=== PATIENT | female | born 1950 | race Caucasian/White ===

== ENCOUNTER → 2017-01-31 | Outpatient (CLI) | payer MEDICARE, MEDICAID ==
[~2017-01-31] MED LIST: ALLERGY10 MG PO; ASPIRIN CHEWABL81 MG PO; ATENOLOL50 MG PO; CIPROFLOXACIN500 MG PO; DAYPRO600 M1 PO; HYDR1000 IM; HYDR25T PO; HYDROCODONE BIT1 T11 PO; NORCO 10-325 T1 EACH PO; POTASSIUM20 MEQ PO; ROBITUSSIN AC 110 ML PO; ROPINIROLE HY0.25 MG PO; SLOW MAG 110 MG64 MG PO; VICODIN ES 7501 TAB PO; ZANTAC150 MG PO; ZITHROMAX Z PA250 MG PO; ZOLOFT100 MG PO
== END | disposition home or self-care (01) ==
LOC: LAB 14:56
DX: E55.9 Vitamin D deficiency, unspecified (principal)

== ENCOUNTER → 2017-04-15 | Outpatient (CLI) | payer MEDICARE, MEDICAID | END | disposition home or self-care (01) | LOC: LAB 15:04 | DX: E55.9 Vitamin D deficiency, unspecified (principal) ==

== ENCOUNTER → 2017-07-25 | Outpatient (CLI) | payer MEDICARE, MEDICAID | END | disposition home or self-care (01) | LOC: ORTHO 03:19 | DX: M47.9 Spondylosis, unspecified (principal); G95.89 Other specified diseases of spinal cord ==

== ENCOUNTER → 2017-08-14 | Outpatient (CLI) | payer MEDICARE, MEDICAID | END | disposition home or self-care (01) | LOC: MAMMO 06:48 | DX: Z12.31 Encounter for screening mammogram for malignant neoplasm of breast (principal) ==

== ENCOUNTER → 2018-01-16 | Outpatient (CLI) | payer MEDICARE, MEDICAID ==
[2018-01-16 12:14] LABS: BASO % 0.7 % (0.0-1.0); EOS # 0.1 10*3/uL (0.0-0.4); EOS % 2.8 % (1.0-4.0); HEMATOCRIT 41.2 % (37.0-47.0); HEMOGLOBIN 13.2 g/dl (12.0-16.0); MEAN CELL VOLUME 92.6 fl (81.0-99.0); MEAN CORPUSCULAR HGB 29.7 pg (27.0-31.0); MEAN PLATELET VOLUME 10.1 fl (9.6-12.3); MONO # 0.3 10*3/uL (0.1-1.0); MONO % 7.1 % (3.0-9.0); NEUT # 2.8 10*3/uL (2.3-7.9); NEUT % 65.2 % (47.0-73.0); PLATELET COUNT AUTOMATED 186 10*3/uL (130-400); RED BLOOD COUNT 4.45 10*6/uL (4.10-5.10); RED CELL DISTRI WIDTH 13.5 % (0-14.5); WHITE BLOOD COUNT 4.3 10*3/uL (4.8-10.8)
[2018-01-16 12:25] LABS: BILIRUBIN NEGATIVE (NEGATIVE); BLOOD NEGATIVE (NEGATIVE); CLARITY CLEAR (CLEAR); COLOR YELLOW (YELLOW); GLUCOSE NEGATIVE (NEGATIVE); KETONE NEGATIVE (NEGATIVE); LEUKO ESTERASE TRACE (NEGATIVE); NITRITE NEGATIVE (NEGATIVE); PH 5.5 (5.0-9.0); SPECIFIC GRAVITY <= 1.005 (1.005-1.030); UROBILINOGEN 0.2 E.U./dl (0.2-1.0)
[2018-01-16 12:40] LABS: ALBUMIN 3.8 gm/dl (3.1-4.5); ALKALINE PHOSPHATASE 71 U/L (45-117); BUN 11 mg/dl (7-24); CHLORIDE 103 mmol/L (98-107); CHOLESTEROL 192 mg/dL (<200); CREATININE 0.88 mg/dL (0.55-1.02); HDL CHOLESTEROL 67 mg/dl (40-60); LDL CHOLESTEROL 111 mg/dL (9-159); POTASSIUM 3.7 mmol/L (3.5-5.1); SGOT/AST 28 IU/L (3-35); SGPT/ALT 34 U/L (12-78); SODIUM 140 mmol/L (136-145); TOTAL PROTEIN 6.5 gm/dL (6.4-8.2); TRIGLYCERIDES 69 mg/dl (<150); VLDL CHOLESTEROL 14 mg/dL (6-40)
[2018-01-16 12:45] LABS: THYROID STIM HORMONE (HS) 0.573 uIU/ml (0.358-4.75)
[2018-01-16 13:03] LABS: BACTERIA TRACE
== END | disposition home or self-care (01) ==
LOC: LAB 11:46
PROVIDERS: Family Medicine
DX: Z00.01 Encounter for general adult medical examination with abnormal findings (principal); I10 Essential (primary) hypertension; E55.9 Vitamin D deficiency, unspecified; G25.81 Restless legs syndrome; M15.9 Polyosteoarthritis, unspecified

== ENCOUNTER 2018-01-23 12:25 | Emergency (ER) | payer MEDICARE, MEDICAID ==
[~2018-01-23] VITALS: Ht 160 cm; Wt 95.3 kg
[2018-01-23] MEDS ORDERED: CHLORZOXAZONE500 M2 PO (13:45)
[2018-01-23] MEDS ORDERED: LIDODERM1 EACH T (14:05)
== END 2018-01-23 14:15 | disposition home or self-care (01) ==
LOC: ED 12:25
DX: M25.511 Pain in right shoulder (principal); R03.0 Elevated blood-pressure reading, without diagnosis of hypertension; Z79.82 Long term (current) use of aspirin; Z79.899 Other long term (current) drug therapy

== ENCOUNTER → 2019-01-08 | Outpatient (CLI) | payer MEDICARE, MEDICAID ==
[~2019-01-08] MED LIST changes: +CHLORZOXAZONE500 M2 PO; +LIDODERM1 EACH T
== END | disposition home or self-care (01) ==
LOC: RAD 07:28
DX: M17.0 Bilateral primary osteoarthritis of knee (principal)

== ENCOUNTER → 2019-11-19 | Outpatient (CLI) | payer MEDICARE, MEDICAID | END | disposition home or self-care (01) | LOC: ORTHO 01:40 | DX: M17.0 Bilateral primary osteoarthritis of knee (principal); M25.769 Osteophyte, unspecified knee ==

== ENCOUNTER 2020-03-07 13:46 | Emergency (ER) | payer MEDICARE, MEDICAID ==
[~2020-03-07] VITALS: Ht 160 cm; Wt 90.7 kg
[2020-03-07 14:18] LABS: BASO # 0.1 10*3/uL (0.0-0.1); BASO % 0.7 % (0.0-1.0); EOS # 0.2 10*3/uL (0.0-0.4); EOS % 2.6 % (1.0-4.0); HEMATOCRIT 41.1 % (37.0-47.0); LYMPH # 1.6 10*3/uL (1.3-4.4); LYMPH % 23.9 % (27.0-41.0); MEAN CELL VOLUME 92.6 fl (81.0-99.0); MEAN CORPUSCULAR HGB 28.8 pg (27.0-31.0); MEAN CORPUSCULAR HGB CONC 31.1 g/dl (33.0-37.0); MEAN PLATELET VOLUME 10.1 fl (9.6-12.3); MONO # 0.5 10*3/uL (0.1-1.0); MONO % 7.4 % (3.0-9.0); NEUT # 4.5 10*3/uL (2.3-7.9); NEUT % 65.3 % (47.0-73.0); PLATELET COUNT AUTOMATED 235 10*3/uL (130-400); RED BLOOD COUNT 4.44 10*6/uL (4.10-5.10); RED CELL DISTRI WIDTH 14.1 % (0-14.5); WHITE BLOOD COUNT 6.9 10*3/uL (4.8-10.8)
[2020-03-07 14:37] LABS: ALBUMIN 3.8 gm/dl (3.1-4.5); ALKALINE PHOSPHATASE 82 U/L (45-117); BUN 12 mg/dl (7-24); CHLORIDE 107 mmol/L (98-107); CREATININE 0.93 mg/dL (0.55-1.02); POTASSIUM 4.3 mmol/L (3.5-5.1); SGOT/AST 27 IU/L (3-35); SGPT/ALT 31 U/L (12-78); SODIUM 142 mmol/L (136-145); TOTAL PROTEIN 7.1 gm/dL (6.4-8.2)
[2020-03-07 14:50] LABS: BILIRUBIN NEGATIVE (NEGATIVE); CLARITY SL CLOUDY (CLEAR); COLOR YELLOW (YELLOW); GLUCOSE NEGATIVE (NEGATIVE); KETONE NEGATIVE (NEGATIVE)
[2020-03-07 14:51] LABS: BACTERIA 1+; BLOOD NEGATIVE (NEGATIVE); EPITHELIAL CELLS 31-40; LEUKO ESTERASE 2+ (NEGATIVE); MUCOUS TRACE; NITRITE NEGATIVE (NEGATIVE); UROBILINOGEN 0.2 E.U./dl (0.2-1.0); WBC TNTC wbc/hpf (0-5)
[2020-03-07] MEDS ORDERED: PYRIDIUM200 M1 PO (16:23)
[2020-03-07] MEDS ORDERED: CIPRO250 MG PO (16:23)
== END 2020-03-07 16:27 | disposition home or self-care (01) ==
LOC: ED 13:46
PROVIDERS: Emergency Medicine
DX: N39.0 Urinary tract infection, site not specified (principal); E11.9 Type 2 diabetes mellitus without complications; I10 Essential (primary) hypertension; R06.02 Shortness of breath; M54.9 Dorsalgia, unspecified; Z79.899 Other long term (current) drug therapy; Z79.82 Long term (current) use of aspirin

== ENCOUNTER → 2020-07-05 | Outpatient (CLI) | payer MEDICARE, MEDICAID ==
[~2020-07-05] MED LIST changes: +CIPRO250 MG PO; +PYRIDIUM200 M1 PO
== END | disposition home or self-care (01) ==
LOC: MAMMO 09:55
PROVIDERS: ATTEND Preventive Medicine Occupational Medicine
DX: Z12.31 Encounter for screening mammogram for malignant neoplasm of breast (principal)

== ENCOUNTER → 2022-04-08 | Outpatient (CLI) | payer MEDICARE, MEDICAID | END | disposition home or self-care (01) | LOC: ORTHO 03:49 | PROVIDERS: ATTEND Orthopaedic Surgery | DX: M17.0 Bilateral primary osteoarthritis of knee (principal); M25.761 Osteophyte, right knee; M25.762 Osteophyte, left knee; M76.52 Patellar tendinitis, left knee; M76.51 Patellar tendinitis, right knee ==

== ENCOUNTER → 2022-04-24 | Outpatient (CLI) | payer MEDICARE, MEDICAID | END | disposition home or self-care (01) | LOC: ORTHO 00:25 → LAB 00:25 → ORTHO 16:53 | PROVIDERS: ATTEND Orthopaedic Surgery | DX: M25.511 Pain in right shoulder (principal); M75.41 Impingement syndrome of right shoulder; A69.23 Arthritis due to Lyme disease ==

== ENCOUNTER → 2022-07-03 | Outpatient (CLI) | payer MEDICARE, MEDICAID | END | disposition home or self-care (01) | LOC: MAMMO 14:00 | PROVIDERS: ATTEND Nurse Practitioner Primary Care | DX: Z12.31 Encounter for screening mammogram for malignant neoplasm of breast (principal); N64.9 Disorder of breast, unspecified ==

== ENCOUNTER → 2022-07-12 | Outpatient (CLI) | payer MEDICARE, MEDICAID | END | disposition home or self-care (01) | LOC: RAD 08:30 | PROVIDERS: ATTEND Nurse Practitioner Primary Care | DX: M85.851 Other specified disorders of bone density and structure, right thigh (principal); Z78.0 Asymptomatic menopausal state ==

== ENCOUNTER → 2022-07-17 | Outpatient (CLI) | payer MEDICARE, MEDICAID | END | disposition home or self-care (01) | LOC: US 00:21 | PROVIDERS: ATTEND Nurse Practitioner Primary Care | DX: N64.9 Disorder of breast, unspecified (principal); R92.8 Other abnormal and inconclusive findings on diagnostic imaging of breast ==

== ENCOUNTER → 2022-10-30 | Outpatient (CLI) | payer MEDICARE, MEDICAID | END | disposition home or self-care (01) | LOC: CT 14:00 | PROVIDERS: ATTEND Orthopaedic Surgery | DX: M17.0 Bilateral primary osteoarthritis of knee (principal) ==

== ENCOUNTER → 2022-11-07 | Outpatient (CLI) | payer MEDICARE, MEDICAID | END | disposition home or self-care (01) | LOC: CARD 12:00 | PROVIDERS: ATTEND Nurse Practitioner Primary Care | DX: I35.8 Other nonrheumatic aortic valve disorders (principal) ==

== ENCOUNTER → 2023-01-22 | Outpatient (CLI) | payer MEDICARE, MEDICAID ==
[~2023-01-22] MED LIST changes: +ASPIRIN ADULT L81 M2 PO; +DOXYCYCLINE50 M2 PO; +OMEPRAZOLE MAGN20 MG PO; +OXYCODONE-ACET1 EACH PO; +PERCOCET 5-3251 EACH PO; +PERCOCET 7.5-31 EACH PO; +ROPINIROLE HYDRO3 MG PO; +TRAMADOL HCL50 MG PO
== END | disposition home or self-care (01) ==
LOC: ORTHO 01:13
PROVIDERS: ATTEND Orthopaedic Surgery
DX: Z47.1 Aftercare following joint replacement surgery (principal); Z96.652 Presence of left artificial knee joint

== ENCOUNTER → 2023-02-12 | Outpatient (CLI) | payer MEDICARE, MEDICAID | END | disposition home or self-care (01) | LOC: ORTHO 02-11 14:05 | PROVIDERS: ATTEND Orthopaedic Surgery | DX: Z47.1 Aftercare following joint replacement surgery (principal) ==

== ENCOUNTER → 2023-04-02 | Outpatient (CLI) | payer MEDICARE, MEDICAID | END | disposition home or self-care (01) | LOC: ORTHO 02:14 | PROVIDERS: ATTEND Orthopaedic Surgery | DX: Z47.1 Aftercare following joint replacement surgery (principal) ==

== ENCOUNTER → 2023-04-22 | Outpatient (CLI) | payer MEDICARE, MEDICAID ==
[2023-04-22 12:18] LABS: BASO % 0.6 % (0.0-1.0); EOS # 0.1 10*3/uL (0.0-0.4); EOS % 2.4 % (1.0-4.0); HEMATOCRIT 41.6 % (37.0-47.0); LYMPH # 1.5 10*3/uL (1.3-4.4); LYMPH % 29.6 % (27.0-41.0); MEAN CELL VOLUME 88.3 fl (81.0-99.0); MEAN CORPUSCULAR HGB 29.1 pg (27.0-31.0); MEAN CORPUSCULAR HGB CONC 32.9 g/dl (33.0-37.0); MEAN PLATELET VOLUME 9.6 fl (9.6-12.3); MONO # 0.4 10*3/uL (0.1-1.0); MONO % 7.5 % (3.0-9.0); NEUT % 59.7 % (47.0-73.0); PLATELET COUNT AUTOMATED 265 10*3/uL (130-400); RED BLOOD COUNT 4.71 10*6/uL (4.10-5.10); RED CELL DISTRI WIDTH 13.9 % (0-14.5); WHITE BLOOD COUNT 5.1 10*3/uL (4.8-10.8)
[2023-04-22 12:47] LABS: ALKALINE PHOSPHATASE 72 U/L (46-116); BUN 14 mg/dl (9-23); CHLORIDE 98 mmol/L (98-107); CHOLESTEROL 180 mg/dL (<200); LDL CHOLESTEROL 108 mg/dL (9-159); POTASSIUM 3.1 mmol/L (3.4-5.1); SGPT/ALT 35 U/L (10-49); TOTAL PROTEIN 6.6 gm/dL (6.0-8.0); TRIGLYCERIDES 78 mg/dl (<150)
[2023-04-22 12:48] LABS: VITAMIN D, 25-HYDROXY 35.6 ng/mL (30-100)
== END | disposition home or self-care (01) ==
LOC: LAB 11:55
PROVIDERS: ATTEND Nurse Practitioner Primary Care
DX: I10 Essential (primary) hypertension (principal); M79.89 Other specified soft tissue disorders; E55.9 Vitamin D deficiency, unspecified

== ENCOUNTER → 2023-05-12 | Outpatient (CLI) | payer MEDICARE, MEDICAID ==
[2023-05-12 16:48] LABS: BUN 13 mg/dl (9-23); CHLORIDE 102 mmol/L (98-107); POTASSIUM 3.4 mmol/L (3.4-5.1)
== END | disposition home or self-care (01) ==
LOC: LAB 16:09
PROVIDERS: ATTEND Nurse Practitioner Primary Care
DX: E87.6 Hypokalemia (principal)

== ENCOUNTER → 2023-06-18 | Outpatient (CLI) | payer MEDICARE, MEDICAID ==
[~2023-06-18] MED LIST changes: +CELECOXIB200 M1 PO; +LASIX20 MG PO; +VITAMIN B12 IM; +VITAMIN D PO
== END | disposition home or self-care (01) ==
LOC: ORTHO 02:13
PROVIDERS: ATTEND Orthopaedic Surgery
DX: Z47.1 Aftercare following joint replacement surgery (principal); Z96.652 Presence of left artificial knee joint

== ENCOUNTER 2023-07-01 03:20 | Inpatient (IN) | payer MEDICARE, MEDICAID ==
[2023-06-26 14:16] VITALS: BP 155/70
[~2023-07-01] VITALS: Ht 160 cm; Wt 90.3 kg
[2023-07-01] VITALS (11 sets, daily range): BP systolic 126–168; BP diastolic 52–99
[2023-07-02] VITALS: BP 154/79
[2023-07-02 04:10] LABS: BASO % 0.1 % (0.0-1.0); HEMATOCRIT 35.5 % (37.0-47.0); LYMPH # 0.6 10*3/uL (1.3-4.4); LYMPH % 5.6 % (27.0-41.0); MEAN CELL VOLUME 89.9 fl (81.0-99.0); MEAN CORPUSCULAR HGB 29.4 pg (27.0-31.0); MEAN CORPUSCULAR HGB CONC 32.7 g/dl (33.0-37.0); MEAN PLATELET VOLUME 9.4 fl (9.6-12.3); MONO # 0.5 10*3/uL (0.1-1.0); MONO % 4.6 % (3.0-9.0); NEUT # 10.2 10*3/uL (2.3-7.9); NEUT % 89.3 % (47.0-73.0); PLATELET COUNT AUTOMATED 246 10*3/uL (130-400); RED BLOOD COUNT 3.95 10*6/uL (4.10-5.10); RED CELL DISTRI WIDTH 14.1 % (0-14.5); WHITE BLOOD COUNT 11.4 10*3/uL (4.8-10.8)
[2023-07-02 04:47] LABS: BUN 11 mg/dl (9-23); CHLORIDE 106 mmol/L (98-107); POTASSIUM 4.5 mmol/L (3.4-5.1)
[2023-07-02 08:00] VITALS: BP 169/57
[2023-07-02 12:00] VITALS: BP 153/50
[2023-07-02 16:00] VITALS: BP 171/80
[2023-07-02] MEDS ORDERED: ASPIRIN ADULT L81 M2 PO (16:53)
[2023-07-02] MEDS ORDERED: HYDROCODONE-AC1 EAC1 PO (16:55)
== END 2023-07-02 17:22 | disposition home health service (06) | DRG 470 ==
LOC: SDC 03:20 → 4E 08:24 → SDC 11:30 → 4E 07-02 17:22
PROVIDERS: Orthopaedic Surgery; ADMIT Internal Medicine; ATTEND Internal Medicine
PROC: 0SRC0J9 Replacement of Right Knee Joint with Synthetic Substitute, Cemented, Open Approach (ICD-10-PCS; principal; 2023-07-01)
PROC: 3E0T3BZ Introduction of Anesthetic Agent into Peripheral Nerves and Plexi, Percutaneous Approach (ICD-10-PCS; 2023-07-01)
DX: M17.11 Unilateral primary osteoarthritis, right knee (principal); I10 Essential (primary) hypertension; K21.9 Gastro-esophageal reflux disease without esophagitis; Z66 Do not resuscitate; G25.81 Restless legs syndrome; Z74.09 Other reduced mobility

== ENCOUNTER → 2023-07-16 | Outpatient (CLI) | payer MEDICARE, MEDICAID ==
[~2023-07-16] MED LIST changes: +HYDROCODONE-AC1 EAC1 PO
== END | disposition home or self-care (01) ==
LOC: ORTHO 01:00
PROVIDERS: ATTEND Orthopaedic Surgery
DX: Z47.1 Aftercare following joint replacement surgery (principal); Z96.651 Presence of right artificial knee joint

== ENCOUNTER → 2023-08-13 | Outpatient (CLI) | payer MEDICARE, MEDICAID | END | disposition home or self-care (01) | LOC: ORTHO 01:29 | PROVIDERS: ATTEND Orthopaedic Surgery | DX: Z47.1 Aftercare following joint replacement surgery (principal) ==

== ENCOUNTER → 2023-10-01 | Outpatient (CLI) | payer MEDICARE, MEDICAID | END | disposition home or self-care (01) | LOC: ORTHO 02:26 | PROVIDERS: ATTEND Orthopaedic Surgery | DX: Z47.1 Aftercare following joint replacement surgery (principal) ==

== ENCOUNTER → 2023-12-31 | Outpatient (CLI) | payer MEDICARE, MEDICAID | END | disposition home or self-care (01) | LOC: ORTHO 03:33 | PROVIDERS: ATTEND Orthopaedic Surgery | DX: Z47.1 Aftercare following joint replacement surgery (principal); I10 Essential (primary) hypertension; E55.9 Vitamin D deficiency, unspecified; E53.8 Deficiency of other specified B group vitamins; G25.81 Restless legs syndrome ==

== ENCOUNTER → 2024-02-19 | Outpatient (CLI) | payer MEDICARE, MEDICAID | END | disposition home or self-care (01) | LOC: CARD 12:29 | PROVIDERS: ATTEND Nurse Practitioner Primary Care | DX: I35.8 Other nonrheumatic aortic valve disorders (principal); I10 Essential (primary) hypertension; R01.1 Cardiac murmur, unspecified ==

== ENCOUNTER 2024-03-28 08:49 | Inpatient (IN) | payer MEDICARE, MEDICAID ==
[~2024-03-28] VITALS: Ht 162.6 cm; Wt 92.1 kg
[2024-03-28 08:49] VITALS: BP 160/86
[2024-03-28 09:18] LABS: BASO % 0.5 % (0.0-1.0); EOS # 0.1 10*3/uL (0.0-0.4); EOS % 1.1 % (1.0-4.0); HEMATOCRIT 41.2 % (37.0-47.0); LYMPH # 1.4 10*3/uL (1.3-4.4); LYMPH % 18.3 % (27.0-41.0); MEAN CORPUSCULAR HGB 28.6 pg (27.0-31.0); MEAN CORPUSCULAR HGB CONC 32.5 g/dl (33.0-37.0); MEAN PLATELET VOLUME 9.6 fl (9.6-12.3); MONO # 0.5 10*3/uL (0.1-1.0); MONO % 6.5 % (3.0-9.0); NEUT # 5.7 10*3/uL (2.3-7.9); NEUT % 73.3 % (47.0-73.0); PLATELET COUNT AUTOMATED 255 10*3/uL (130-400); RED BLOOD COUNT 4.68 10*6/uL (4.10-5.10); RED CELL DISTRI WIDTH 14.3 % (0-14.5); WHITE BLOOD COUNT 7.8 10*3/uL (4.8-10.8)
[2024-03-28] MEDS ORDERED: Ondansetron Hydrochloride 4 MG/2 ML VIAL IV ONE ×2 (09:20→11:55)
[2024-03-28] MEDS ORDERED: fentaNYL CITRATE 100 MCG/2 ML VIAL IV ONE ×2 (09:20→10:55)
[2024-03-28] MEDS ORDERED: Lactated Ringer's Solution 1,000 ML IV SCH ×2 (09:20→11:55)
[2024-03-28 09:30] LABS: ACT PARTIAL THROMBO TIME 26.6 SECONDS (20.0-32.1)
[2024-03-28 09:40] LABS: ALKALINE PHOSPHATASE 110 U/L (46-116); BUN 16 mg/dl (9-23); CHLORIDE 104 mmol/L (98-107); POTASSIUM 3.2 mmol/L (3.4-5.1); SGPT/ALT 13 U/L (5-49); TOTAL PROTEIN 6.7 gm/dL (6.0-8.0)
[2024-03-28] MEDS ORDERED: Piperacillin Sodium/Tazobact 100 ML IV ONE (11:30)
[2024-03-28] MEDS ORDERED: HYDROCHLOROTH12.5 M2 PO (12:08)
[2024-03-28] MEDS ORDERED: ATENOLOL25 MG PO (12:08)
[2024-03-28] MEDS ORDERED: DULOXETINE HCL20 MG PO (12:09)
[2024-03-28] MEDS ORDERED: Lactated Ringer's Solution 1,000 ML IV ONE ×2 (12:09)
[2024-03-28] MEDS ORDERED: ACETAMINOPHEN 325 MG TAB PO PRN (12:10)
[2024-03-28] MEDS ORDERED: BISACODYL 10 MG SUPP R PRN (12:10)
[2024-03-28] MEDS ORDERED: ACETAMINOPHEN 650 MG SUPP R PRN (12:10)
[2024-03-28] MEDS ORDERED: VITAMIN D310 MCG PO (12:10)
[2024-03-28] MEDS ORDERED: Ondansetron Hydrochloride 4 MG/2 ML VIAL IV PRN (12:10)
[2024-03-28] MEDS ORDERED: BISACODYL 5 MG TAB PO PRN (12:10)
[2024-03-28] MEDS ORDERED: Acetaminophen/Hydrocodone 5 MG/325 MG TABLET PO PRN (12:10)
[2024-03-28] MEDS ORDERED: MAGNESIUM200 MG PO (12:11)
[2024-03-28] MEDS ORDERED: HYDROmorphONE Hydrochloride 0.5 MG/0.5 ML SYRINGE IV PRN (12:15)
[2024-03-28] MEDS ORDERED: POTASSIUM CHLORIDE 20 MEQ in Lactated Ringer's Solution 1,000 ML IV SCH (12:20)
[2024-03-28] MEDS ORDERED: HYDROmorphONE Hydrochloride 0.5 MG/0.5 ML SYRINGE IV ONE (12:30)
[2024-03-28 12:57] VITALS: BP 158/69
[2024-03-28] MEDS ORDERED: Ketorolac Tromethamine 15 MG/ML VIAL IV ONE ×2 (15:00→18:25)
[2024-03-28 15:37] VITALS: BP 139/67
[2024-03-28] MEDS ORDERED: HYDROmorphONE Hydrochloride 1 MG/ML SYR IV PRN (15:57)
[2024-03-28] MEDS ORDERED: Piperacillin Sodium/Tazobact 50 ML IV SCH (18:00)
[2024-03-28] MEDS ORDERED: Ketorolac Tromethamine 15 MG/ML VIAL IM ONE (18:25)
[2024-03-28] MEDS ORDERED: Ketorolac Tromethamine 15 MG/ML VIAL IV PRN (18:35)
[2024-03-28] MEDS ORDERED: IOHEXOL 300 MG/ML 100 ML VIAL IV ONE (18:40)
[2024-03-28] MEDS ORDERED: IOHEXOL 9 MG/ML (IODINE) ORAL SOLUTION PO ONE (18:40)
[2024-03-28] MEDS ORDERED: SINCALIDE 5 MCG VIAL IV SCH (19:15)
[2024-03-28] MEDS ORDERED: Technetium Tc 99M Mebrofenin 1 KIT KIT IV SCH (19:15)
[2024-03-28 19:18] VITALS: BP 147/63
[2024-03-28] MEDS ORDERED: Ropinirole Hydrochloride 1 MG TAB PO SCH (22:00)
[2024-03-28 23:12] VITALS: BP 150/58
[2024-03-29] VITALS (10 sets, daily range): BP systolic 99–146; BP diastolic 51–78
[2024-03-29 04:08] LABS: BASO % 0.2 % (0.0-1.0); EOS % 0.3 % (1.0-4.0); HEMATOCRIT 38.5 % (37.0-47.0); LYMPH # 0.7 10*3/uL (1.3-4.4); LYMPH % 7.2 % (27.0-41.0); MEAN CELL VOLUME 88.9 fl (81.0-99.0); MEAN CORPUSCULAR HGB 28.9 pg (27.0-31.0); MEAN CORPUSCULAR HGB CONC 32.5 g/dl (33.0-37.0); MEAN PLATELET VOLUME 10.2 fl (9.6-12.3); MONO # 0.8 10*3/uL (0.1-1.0); MONO % 7.5 % (3.0-9.0); NEUT # 8.4 10*3/uL (2.3-7.9); NEUT % 84.4 % (47.0-73.0); PLATELET COUNT AUTOMATED 211 10*3/uL (130-400); RED BLOOD COUNT 4.33 10*6/uL (4.10-5.10); RED CELL DISTRI WIDTH 14.5 % (0-14.5)
[2024-03-29 04:30] LABS: ALKALINE PHOSPHATASE 85 U/L (46-116); BUN 13 mg/dl (9-23); CHLORIDE 102 mmol/L (98-107); POTASSIUM 3.6 mmol/L (3.4-5.1); SGPT/ALT 14 U/L (5-49); TOTAL PROTEIN 5.6 gm/dL (6.0-8.0)
[2024-03-29] MEDS ORDERED: LORATADINE 10 MG TAB PO SCH (10:00)
[2024-03-29] MEDS ORDERED: Vitamin D 400 IU TAB (10 MCG) PO SCH (10:00)
[2024-03-29] MEDS ORDERED: OMEPRAZOLE 20 MG CAP PO SCH (10:00)
[2024-03-29] MEDS ORDERED: ATENOLOL 25 MG TAB PO SCH (10:00)
[2024-03-29] MEDS ORDERED: HYDROCHLOROTHIAZIDE 12.5 MG CAP PO SCH (10:00)
[2024-03-29] MEDS ORDERED: Duloxetine Hydrochloride 20 MG CAP PO SCH (10:00)
[2024-03-29] MEDS ORDERED: Lactated Ringer's Solution 1,000 ML IV ONE ×2 (12:57→18:09)
[2024-03-29] MEDS ORDERED: ceFAZolin sodium/sodium chlor 0 ML IV ONE (13:32)
[2024-03-29] MEDS ORDERED: BUPIVACAINE 0.5% 30 ML IV ONE (15:02)
[2024-03-29] MEDS ORDERED: SODIUM CHLORIDE 0.9% 100 ML IV ONE (15:06)
[2024-03-29] MEDS ORDERED: IOHEXOL 240 MG/ML 20 ML SOL ONE ×2 (15:06→17:12)
[2024-03-29] MEDS ORDERED: Glucagon Hydrochloride 1 MG SYR ONE (17:13)
[2024-03-29] MEDS ORDERED: SODIUM CHLORIDE 0.9% 1,000 ML IV ONE (19:10)
[2024-03-29 19:54] LABS: HEMATOCRIT 38.6 % (37.0-47.0); MEAN CELL VOLUME 88.7 fl (81.0-99.0); MEAN CORPUSCULAR HGB 28.7 pg (27.0-31.0); MEAN CORPUSCULAR HGB CONC 32.4 g/dl (33.0-37.0); MEAN PLATELET VOLUME 10.1 fl (9.6-12.3); PLATELET COUNT AUTOMATED 239 10*3/uL (130-400); RED BLOOD COUNT 4.35 10*6/uL (4.10-5.10); RED CELL DISTRI WIDTH 14.7 % (0-14.5)
[2024-03-29 19:56] LABS: MANUAL DIFF REFLEX YES
[2024-03-29 20:26] LABS: TOTAL CELLS COUNTED 100 #CELLS
[2024-03-29 20:27] LABS: BURR CELLS FEW; PLATELET SUFFICIENCY NORMAL (NORMAL)
[2024-03-29] MEDS ORDERED: ROCURONIUM BROMIDE 50 MG/5 ML SYRINGE IV ONE (22:18)
[2024-03-29] MEDS ORDERED: Dexamethasone Sodium Phospha 20 MG/5 ML VIAL IV ONE (22:18)
[2024-03-29] MEDS ORDERED: SEVOFLURANE 250 ML BOT INH ONE (22:18)
[2024-03-29] MEDS ORDERED: Ondansetron Hydrochloride 4 MG/2 ML VIAL IV ONE (22:18)
[2024-03-29] MEDS ORDERED: PROPOFOL 200 MG/20 ML VIAL IV ONE (22:18)
[2024-03-29] MEDS ORDERED: fentaNYL CITRATE 100 MCG/2 ML VIAL IV ONE (22:18)
[2024-03-29] MEDS ORDERED: Lidocaine Hydrochloride 2% 10 ML AMP IM ONE (22:18)
[2024-03-30] VITALS: BP 106/66
[2024-03-30 05:10] LABS: ALKALINE PHOSPHATASE 111 U/L (46-116); BUN 16 mg/dl (9-23); CHLORIDE 105 mmol/L (98-107); POTASSIUM 3.7 mmol/L (3.4-5.1); SGPT/ALT 99 U/L (5-49); TOTAL PROTEIN 5.2 gm/dL (6.0-8.0)
[2024-03-30 05:59] LABS: BASO % 0.2 % (0.0-1.0); HEMATOCRIT 35.4 % (37.0-47.0); LYMPH # 0.6 10*3/uL (1.3-4.4); LYMPH % 6.6 % (27.0-41.0); MEAN CELL VOLUME 91.7 fl (81.0-99.0); MEAN CORPUSCULAR HGB 28.5 pg (27.0-31.0); MEAN CORPUSCULAR HGB CONC 31.1 g/dl (33.0-37.0); MEAN PLATELET VOLUME 10.5 fl (9.6-12.3); MONO # 0.4 10*3/uL (0.1-1.0); MONO % 4.8 % (3.0-9.0); NEUT # 7.6 10*3/uL (2.3-7.9); NEUT % 88.1 % (47.0-73.0); PLATELET COUNT AUTOMATED 207 10*3/uL (130-400); RED BLOOD COUNT 3.86 10*6/uL (4.10-5.10); WHITE BLOOD COUNT 8.7 10*3/uL (4.8-10.8)
[2024-03-30] MEDS ORDERED: SODIUM CHLORIDE 0.9% 1,000 ML IV ONE (07:45)
[2024-03-30 08:00] VITALS: BP 110/50
[2024-03-30 12:00] VITALS: BP 109/43
[2024-03-30 16:00] VITALS: BP 118/79
[2024-03-30 20:00] VITALS: BP 124/58
[2024-03-31] VITALS: BP 96/43
[2024-03-31 05:19] LABS: ALKALINE PHOSPHATASE 80 U/L (46-116); BUN 13 mg/dl (9-23); CHLORIDE 107 mmol/L (98-107); POTASSIUM 3.1 mmol/L (3.4-5.1); SGPT/ALT 56 U/L (5-49); TOTAL PROTEIN 4.9 gm/dL (6.0-8.0)
[2024-03-31 06:02] LABS: BASO % 0.4 % (0.0-1.0); EOS # 0.3 10*3/uL (0.0-0.4); EOS % 4.9 % (1.0-4.0); HEMATOCRIT 30.2 % (37.0-47.0); LYMPH # 1.1 10*3/uL (1.3-4.4); LYMPH % 19.6 % (27.0-41.0); MEAN CELL VOLUME 90.1 fl (81.0-99.0); MEAN CORPUSCULAR HGB CONC 32.1 g/dl (33.0-37.0); MEAN PLATELET VOLUME 10.3 fl (9.6-12.3); MONO # 0.4 10*3/uL (0.1-1.0); MONO % 6.3 % (3.0-9.0); NEUT # 3.8 10*3/uL (2.3-7.9); NEUT % 68.4 % (47.0-73.0); PLATELET COUNT AUTOMATED 172 10*3/uL (130-400); RED BLOOD COUNT 3.35 10*6/uL (4.10-5.10); WHITE BLOOD COUNT 5.6 10*3/uL (4.8-10.8)
[2024-03-31 08:00] VITALS: BP 105/81
== END 2024-03-31 09:30 | disposition short-term general hospital (02) | DRG 417 ==
LOC: ED 08:49 → EDHOLD 11:28 → ICCU 11:28
PROVIDERS: Emergency Medicine; Internal Medicine; Registered Nurse; Student in an Organized Health Care Education/Training Program; ADMIT Family Medicine; ATTEND Family Medicine
PROC: 0FT44ZZ Resection of Gallbladder, Percutaneous Endoscopic Approach (ICD-10-PCS; principal; 2024-03-29)
PROC: BF131ZZ Fluoroscopy of Gallbladder and Bile Ducts using Low Osmolar Contrast (ICD-10-PCS; 2024-03-29)
DX: K80.62 Calculus of gallbladder and bile duct with acute cholecystitis without obstruction (principal); K65.3 Choleperitonitis; I50.32 Chronic diastolic (congestive) heart failure; E87.6 Hypokalemia; R73.9 Hyperglycemia, unspecified; K21.9 Gastro-esophageal reflux disease without esophagitis; E55.9 Vitamin D deficiency, unspecified; Z96.652 Presence of left artificial knee joint; I11.0 Hypertensive heart disease with heart failure; G25.81 Restless legs syndrome; L71.9 Rosacea, unspecified; M15.0 Primary generalized (osteo)arthritis; Z82.3 Family history of stroke; Z82.49 Family history of ischemic heart disease and other diseases of the circulatory system; Z79.899 Other long term (current) drug therapy

== ENCOUNTER → 2024-06-03 | Outpatient (CLI) | payer MEDICARE, MEDICAID ==
[~2024-06-03] MED LIST changes: +ATENOLOL25 MG PO; +DULOXETINE HCL20 MG PO; +HYDROCHLOROTH12.5 M2 PO; +IOHEXOL 300 MG/ML 100 ML VIAL IV ONE; +MAGNESIUM200 MG PO; +VITAMIN D310 MCG PO
== END | disposition home or self-care (01) ==
LOC: CT 01:17
PROVIDERS: ATTEND Student in an Organized Health Care Education/Training Program
DX: C49.A0 Gastrointestinal stromal tumor, unspecified site (principal); K76.89 Other specified diseases of liver; K44.9 Diaphragmatic hernia without obstruction or gangrene; N28.1 Cyst of kidney, acquired; R16.1 Splenomegaly, not elsewhere classified; M47.816 Spondylosis without myelopathy or radiculopathy, lumbar region; Z90.49 Acquired absence of other specified parts of digestive tract

== ENCOUNTER → 2024-06-30 | Outpatient (CLI) | payer MEDICARE, MEDICAID ==
[~2024-06-30] MED LIST changes: -IOHEXOL 300 MG/ML 100 ML VIAL IV ONE
== END | disposition home or self-care (01) ==
LOC: ORTHO 03:06
PROVIDERS: ATTEND Orthopaedic Surgery
DX: Z96.651 Presence of right artificial knee joint (principal); Z96.652 Presence of left artificial knee joint

== ENCOUNTER → 2025-07-26 | Outpatient (CLI) | payer OTHER, MEDICAID ==
[2025-07-26 14:41] LABS: VITAMIN D, 25-HYDROXY 37.9 ng/mL (30-100)
== END | disposition home or self-care (01) ==
LOC: LAB 13:33
PROVIDERS: ATTEND Nurse Practitioner Primary Care
DX: E55.9 Vitamin D deficiency, unspecified (principal); E53.8 Deficiency of other specified B group vitamins